=== PATIENT | male | born 1985 | race Caucasian/White ===

== ENCOUNTER 2017-01-18 08:40 | Day surgery (SDC) | payer OTHER ==
[~2017-01-18 08:40] MED LIST: CEFAZOLIN SODIUM 2 GRAM PREMIX 100 ML IV ONE; IV START KIT ONE; LACTATED RINGERS 1,000 ML ONE
[2017-01-18] MEDS ORDERED: LACTATED RINGERS 1,000 ML IV SCH ×3 (08:53→12:17)
[2017-01-18] MEDS ORDERED: LIDOCAINE 1% 2 ML VIAL ID PRN (08:53)
[2017-01-18] MEDS ORDERED: CEFAZOLIN SODIUM 2 GRAM PREMIX 2 G in Premix (D5W) 100 ml 1 EACH IV PRN (08:53)
[2017-01-18] MEDS ORDERED: MIDAZOLAM HCL 1 MG/ML 2ML VIAL ONE (09:41)
[2017-01-18] MEDS ORDERED: FENTANYL 100 MCG/2 ML VIAL ONE ×3 (09:41→11:57)
[2017-01-18] MEDS ORDERED: DEXAMETHASONE SOD PHOS 4 MG/1 ML VIAL ONE (09:43)
[2017-01-18] MEDS ORDERED: ONDANSETRON 4 MG/2ML 2 ML VIAL ONE (09:43)
[2017-01-18] MEDS ORDERED: PROPOFOL 20 ML IV ONE (09:43)
[2017-01-18] MEDS ORDERED: ROCURONIUM BROMIDE 10 MG/ML DOSE IV ONE (09:43)
[2017-01-18] MEDS ORDERED: ATROPINE SULFATE 0.4 MG/1 ML VIAL IV PRN (10:28)
[2017-01-18] MEDS ORDERED: HYDRALAZINE HCL 20 MG/1 ML VIAL IV PRN (10:28)
[2017-01-18] MEDS ORDERED: PROMETHAZINE HCL 25 MG/ML VIAL IM PRN (10:28)
[2017-01-18] MEDS ORDERED: ONDANSETRON 4 MG/2ML 2 ML VIAL IV PRN ×2 (10:28→12:17)
[2017-01-18] MEDS ORDERED: HYDROMORPHONE HCL 1 MG/ML SYRINGE IV PRN ×2 (10:28→12:17)
[2017-01-18] MEDS ORDERED: LABETALOL HCL 5 MG/ML 20ML VIAL IV PRN (10:28)
[2017-01-18] MEDS ORDERED: FENTANYL 100 MCG/2 ML VIAL IV PRN (10:28)
[2017-01-18] MEDS ORDERED: MEPERIDINE 25 MG/ML SYRINGE IV PRN (10:28)
[2017-01-18] MEDS ORDERED: NALOXONE HCL 0.4 MG/ML VIAL IV PRN (10:28)
[2017-01-18] MEDS ORDERED: BUPIVACAINE 0.5% W/EPI SDV 30 ML VIAL ONE (10:29)
[2017-01-18] MEDS ORDERED: LIDOCAINE 1% (PRES FREE) 30 ML VIAL ONE (10:29)
[2017-01-18] MEDS ORDERED: SUCCINYLCHOLINE CHL 20 MG/ML DOSE ONE (10:42)
[2017-01-18] MEDS ORDERED: HYDROMORPHONE HCL 2 MG/ML SYRINGE ONE (10:58)
--- NOTE | 2017-01-18 11:54 | PCMBPN ---
Brief Post Op Note: Date of Procedure: 01/18/17 Preoperative Diagnosis: 1. Incarcerated umbilical hernia Postoperative Diagnosis: 1. Same Procedure: umbilical hernia repair with mesh Surgeon: Riddhi Randall MD Assist:Vonnie Feng Anesthesia: GETA Findings: see dictation Condition: stable Complications: none IV Fluids: see anesthesia report Urine Output: not recorded Estimated Blood Loss: 10 mLs Tourniquet Time: N/A Specimens: N/A Implants: medium umbilical hernia mesh 6.4 cm Drains: [N/A]
[2017-01-18] MEDS ORDERED: KETOROLAC TROMETHAMINE 30 MG/ML 1 ML VIAL IV PRN (12:17)
[2017-01-18] MEDS ORDERED: OXYCODONE/ACETAMINOPHEN 5/325 MG TABLET PO PRN (12:17)
[2017-01-18] MEDS ORDERED: HYDROMORPHONE HCL 1 MG/ML SYRINGE ONE (12:34)
[2017-01-18] MEDS ORDERED: KETOROLAC TROMETHAMINE 30 MG/ML 1 ML VIAL ONE (13:21)
[2017-01-18] MEDS ORDERED: OXYCODONE/ACETAMINOPHEN 5/325 MG TABLET ONE (14:28)
--- NOTE | 2017-01-18 16:55 | OP ---
HARLEY HERNANDEZ [id number] : 1985 DATE OF SERVICE: January 18, 2017 PREOPERATIVE DIAGNOSIS: Umbilical hernia. POSTOPERATIVE DIAGNOSIS: Umbilical hernia. PROCEDURE PERFORMED: UMBILICAL HERNIA REPAIR WITH MESH. SURGEON: Riddhi Randall M.D. ANESTHESIA: General. AIRPLANE PILOT PHOTOGRAMMETRY: Zain Hannah FINDINGS: A 2.5 x 2 cm defect at the umbilical fascia repaired with a 6.4 cm umbilical hernia mesh. TECHNIQUE: The patient was brought back to the operating room and placed under general anesthesia. The abdomen was prepped and draped in sterile surgical fashion. A 15 blade scalpel was then used to make a curvilinear incision just inferior to the umbilicus over the hernia. Electrocautery was used to cut through the deep dermis and subcutaneous tissue and dissect the hernia sac from the surrounding tissue down to the level of the fascia. Then the hernia sac was taken off of the fascia and the hernia was freed from the fascia. Once it was freed, there was a little bit of oozing that was taken care of with electrocautery, and then the hernia contents, which was just preperitoneal fat, was pushed back into the abdominal cavity. The fascia was cleared off underneath and then a medium mesh, which was 6.4 cm in diameter, was placed under the fascia and this was sewn in place with #2-0 Prolene circumferentially. Once they were secured, the area was checked for defects. There did not appear to be any defects where hernia contents could pass through. Everything was nice and secure. The area was irrigated and then the umbilicus was put back down with #2-0 Vicryl, and then the deep dermis was closed with interrupted #3-0 Vicryl and the skin was closed with #4-0 Monocryl. SteriStrips were applied and the patient was awakened and returned to the recovery room in stable condition. All needle, instrument and sponge counts were correct at the end of the case.
== END 2017-01-18 15:10 | disposition home or self-care (01) ==
LOC: SDC 08:40
PROVIDERS: ATTEND Surgery
PROC: 0WUF0JZ Supplement Abdominal Wall with Synthetic Substitute, Open Approach (ICD-10-PCS; principal; 2017-01-18)
DX: K42.0 Umbilical hernia with obstruction, without gangrene (principal); X50.0XXA Overexertion from strenuous movement or load, initial encounter; Y93.E6 Activity, residential relocation
CPT/HCPCS: 49587; J1170 ×2; J3010 ×3; J1100; A9270; J1885; J2250; J2001; J2405; J7120; J0690